=== PATIENT | male | born 1980 ===

== ENCOUNTER 2019-11-23 08:53 | Emergency (ER) | payer OTHER ==
--- NOTE | 2019-11-23 09:12 | ERPHSYRPT ---
- History of Present Illness Time Seen by Provider: 11/23/19 09:12 Source: patient Exam Limitations: no limitations Physician History: 39 y/o right handed male presents with injury to right thumb. 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 tetanus not utd. pt can take keflex just not penicillins. Occurred: just prior to arrival Method of Injury: direct blow (car door) Quality: constant, aching, throbbing Severity of Pain-Max: moderate Severity of Pain-Current: moderate Extremities Pain Location: thumb: right Modifying Factors: Improves With: movement Associated Symptoms: none Allergies/Adverse Reactions: Penicillins Allergy (Verified 11/23/19 08:58) Home Medications: Naproxen 500 mg PO Q12H PRN PRN 11/23/19 [History] - Review of Systems Constitutional: No Symptoms Eyes: No Symptoms Ears, Nose, & Throat: No Symptoms Respiratory: No Symptoms Cardiac: No Symptoms Abdominal/Gastrointestinal: No Symptoms Genitourinary Symptoms: No Symptoms Musculoskeletal: Injury (right thumb) Neurological: Other (abrasion left thumb) Psychological: No Symptoms Endocrine: No Symptoms Hematologic/Lymphatic: No Symptoms Immunological/Allergic: No Symptoms All Other Systems: Reviewed and Negative - Past Medical History Neurological History: No Pertinent History ENT History: No Pertinent History Cardiac History: No Pertinent History Respiratory History: No Pertinent History Endocrine Medical History: No Pertinent History Musculoskeletal History: No Pertinent History GI Medical History: No Pertinent History History: No Pertinent History Psycho-Social History: No Pertinent History Male Reproductive Disorders: No Pertinent History - Past Surgical History Neuro Surgical History: No Pertinent History Cardiac: No Pertinent History Respiratory: No Pertinent History Gastrointestinal: No Pertinent History Genitourinary: No Pertinent History Musculoskeletal: No Pertinent History Male Surgical History: No Pertinent History - Nursing Vital Signs Nursing Vital Signs: Initial Vital Signs Temperature 97.9 F 11/23/19 09:01 Pulse Rate 78 11/23/19 09:01 Respiratory Rate 16 11/23/19 09:01 Blood Pressure 127/83 11/23/19 09:01 O2 Sat by Pulse Oximetry 100 11/23/19 09:01 Pain Scale Pain Intensity 6 - Physical Exam General Appearance: no apparent distress, alert, anxiety Eyes, Ears, Nose, Throat Exam: normal ENT inspection, moist mucous membranes Neck Exam: normal inspection, non-tender, supple, full range of motion Cardiovascular/Respiratory Exam: chest non-tender Abdominal Exam: non-tender Back Exam: normal inspection Shoulder Exam: normal inspection, non-tender, no evidence of injury, normal ROM Elbow/Forearm Exam: normal inspection, non-tender, no evidence of injury, normal ROM Wrist Exam: normal inspection, non-tender, no evidence of injury, normal ROM Hand Exam: normal ROM, abrasions (thumb), bone tenderness, soft tissue tenderness, swelling (left thumb) Neuro/Tendon Exam: normal sensation, normal motor functions, normal tendon functions Mental Status Exam: alert, oriented x 3, cooperative Skin Exam: other (see above) SpO2 Interpretation: normal O2 Delivery: Room Air - Course Nursing assessment & vital signs reviewed: Yes Ordered Tests: Active Orders 24 hr Category Date Time Status Splint STAT Care 11/23/19 09:59 Ordered HAND (MINIMUM 3 VIEWS) Stat Exams 11/23/19 09:15 Completed - Progress Progress: unchanged Progress Note: 11/23/19 10:09 xray right hand-tiny nondisplaced cortical shaft fx distal phalanx of thumb Counseled pt/family regarding: diagnosis, need for follow-up, rad results - Departure Departure Disposition: Home Clinical Impression: Thumb fracture Condition: Stable Critical Care Time: No Referrals: DOCTOR,NO FAMILY [Primary Care Provider] - Additional Instructions: wear splint for comfort. keep abrasion site clean daily and may apply antibiotic ointment to site daily. ice pack 3 times daily for 3 days. add naproxen for pain. Prescriptions: Hydrocodone/APAP 5/325 [[place] 5/325 mg] 1 each PO Q12H PRN PRN #6 tablet MDD 2 PRN Reason: Pain Cephalexin Mh 500 mg [Keflex 500 mg] 500 mg PO TID #15 capsule
[2019-11-23 09:17] VITALS: BP 127/83; PULSE 78; O2SAT 100
--- NOTE | 2019-11-23 09:41 | XRAY ---
Indication: Distal thumb crush injury. Comparison: None 3 views of the right hand demonstrates tiny nondisplaced cortical shaft fracture distal phalanx of the thumb. Elsewhere tiny ulnar styloid well-circumscribed ossification either developmental versus old injury. No other bony, articular, or soft tissue abnormalities.
[2019-11-23] MEDS ORDERED: BACIGUENT PACKET TP ONE (09:57)
[2019-11-23] MEDS ORDERED: Adacel Vial IM ONE ×2 (10:16→10:18)
[2019-11-23] MEDS ORDERED: BACIGUENT PACKET ONE (10:18)
== END 2019-11-23 10:33 | disposition home or self-care (01) ==
LOC: ED 08:53
DX: S62.502A Fracture of unspecified phalanx of left thumb, initial encounter for closed fracture (principal); V48.4XXA Person boarding or alighting a car injured in noncollision transport accident, initial encounter
CPT/HCPCS: 73130; 90471; 90715; 99284; A9270-GY

== ENCOUNTER 2024-02-20 10:12 | Emergency (ER) | payer OTHER ==
[2024-02-20 10:40] VITALS: TEMP 97.2; O2SAT 94
[2024-02-20 10:48] VITALS: PULSE 71
[2024-02-20] MEDS: Adacel Vial IM ONE (10:48)
--- NOTE | 2024-02-20 11:08 | ERPHSYRPT ---
- History of Present Illness Time Seen by Provider: 02/20/24 10:15 Source: patient Exam Limitations: no limitations Patient Subjective Stated Complaint: "I think I have an infected hair, I tried to pop it last night but it's bigger now". Triage Nursing Assessment: Pt presents to ER with complaints of right testicular abscess / possible infected hair. Pt noticed area yesterday and attempted to "pop" it while at home. Pt does have small red area to right side of scrotum. Pt rates pain 8/10 scale. Pt is alert and oriented x 3. Respirations are easy. Pt is able to ambulate without difficulty. Pt is afebrile. Has no further complaints at this time. Physician History: Patient is here with right scrotal pain. Patient has a ingrown hair follicle. Describes it as tender, minimally drainage. Patient did try to drain it yesterday on his home. He was unable to. 8 out of 10 pain. No actual pain inside his testicle. He is up-to-date on his tetanus shot. No systemic signs of illness. No fever, chills, nausea, vomiting. Patient has no fever, tachycardia here. Allergies/Adverse Reactions: Penicillins Allergy (Verified 02/20/24 10:42) Hx Tetanus, Diphtheria Vaccination/Date Given: No Hx Influenza Vaccination/Date Given: No Hx Pneumococcal Vaccination/Date Given: No Immunizations Up to Date: No Travel Risk - International Travel Have you traveled outside of the country in past 3 weeks: No - Emerging Infectious Disease Are you exhibiting symptoms associated with any current EIDs: No - Past Medical History Pertinent Past Medical History: Yes Neurological History: No Pertinent History ENT History: No Pertinent History Cardiac History: Hypertension Respiratory History: No Pertinent History Endocrine Medical History: No Pertinent History Musculoskeletal History: No Pertinent History GI Medical History: No Pertinent History History: No Pertinent History Psycho-Social History: No Pertinent History Male Reproductive Disorders: No Pertinent History - Past Surgical History Past Surgical History: Yes Neuro Surgical History: No Pertinent History Cardiac: No Pertinent History Respiratory: No Pertinent History Gastrointestinal: No Pertinent History Genitourinary: No Pertinent History Musculoskeletal: Orthopedic Surgery Male Surgical History: Vasectomy Other Surgical History: bones spurs on right arm - Social History Smoking Status: Never smoker Exposure to second hand smoke: No Drug Use: marijuana Patient Lives Alone: No - Nursing Vital Signs Nursing Vital Signs: Initial Vital Signs Temperature 97.2 F 02/20/24 10:28 Pulse Rate 81 02/20/24 10:28 Respiratory Rate 18 02/20/24 10:28 Blood Pressure 136/86 02/20/24 10:28 O2 Sat by Pulse Oximetry 94 L 02/20/24 10:28 Pain Scale Pain Intensity 6 - Physical Exam SpO2 Interpretation: normal SpO2: 94 Comments: 02/20/24 11:07 Review of Systems Constitutional: Negative for fever. HENT: Negative for congestion. Respiratory: Negative for shortness of breath. Cardiovascular: Negative for chest pain. Gastrointestinal: Negative for abdominal pain. Genitourinary: Negative for dysuria. Musculoskeletal: Negative for back pain. Skin: Negative for rash. Neurological: Negative for headaches. Psychiatric/Behavioral: Negative for behavioral problems. All other systems reviewed and are negative. Physical Exam Vitals signs and nursing note reviewed. Constitutional: Appearance: Patient is well-developed. HENT: Head: Normocephalic and atraumatic. Eyes: Conjunctiva/sclera: Conjunctivae normal. Neck: Musculoskeletal: Normal range of motion. Trachea: No tracheal deviation. Cardiovascular: Rate and Rhythm: Normal rate. Pulmonary: Effort: Pulmonary effort is normal. No respiratory distress. Abdominal: Palpations: Abdomen is soft. Musculoskeletal: General: No deformity. Skin: General: Skin is warm and dry. Neurological/ Psychiatric: Mental Status: Mental status, behavior, interaction with environment is appropriate for patient's age and condition exam chaperoned by nurse at bedside, Adele: Patient has testicles in normal lie, no testicular tenderness, penis is c ircumcised, no discharge, tenderness. On patient's right outer scrotum. There appears to be a 1 cm x 0.5 cm area of draining abscess. It is minimally tender. I was able to expel some minimal purulent discharge. - Course Nursing assessment & vital signs reviewed: Yes Ordered Tests: Active Orders 24 hr Category Date Time Status POCT Glucose Check STAT Care 02/20/24 11:32 Active CULTURE,WOUND Stat Lab 02/20/24 10:39 Received GLUCOSE,RANDOM Stat Lab 02/20/24 10:45 Received POCT GLUCOSE Stat Lab 02/20/24 11:32 Received Medication Summary Discontinued Medications Generic Name Dose Route Start Last Admin Trade Name Freq PRN Reason Stop Dose Admin Diphtheria/Tetanus/Acell Pertussis 0.5 ml 02/20/24 10:36 02/20/24 10:48 Tdap --Diph,Pertuss(Acell),Tet Vac/Pf 0.5 Ml Vial IM 02/20/24 10:37 Not Given .ONCE ONE - Progress Progress: improved Progress Note: 02/20/24 11:10 Patient is here with draining small skin abscess on the exterior right scrotum. On palpation I do not feel any deeper abscess, extension. It is contained. Wound culture sent. We did obtain a [id number] glucose to make sure this was not a first-time diabetic presentation. Patient is up-to-date state on tetanus. He has a penicillin allergy. Will use doxycycline for the skin infection going home. Glucose was 94, no signs of new onset diabetes. Strict return precautions given. Return here for new or changing symptoms. Counseled pt/family regarding: lab results, diagnosis, need for follow-up - Departure Departure Disposition: Home Clinical Impression: Abscess of skin, Ingrown hair Condition: Stable Critical Care Time: No Referrals: DOCTOR,NO FAMILY [Primary Care Provider] - Follow up/PCP as directed Instructions: Wound Infection Additional Instructions: You will need your wound rechecked in 2 to 3 days with your primary care doctor. Return here sooner for any new or changing symptoms. Prescriptions: Doxycycline Hyclate 100 mg [Vibramycin 100 MG] 100 mg PO BID #14 tab
[2024-02-20 11:15] VITALS: BP 146/85; RESP 18
== END 2024-02-20 11:36 | disposition home or self-care (01) ==
LOC: ED 10:12
DX: N49.2 Inflammatory disorders of scrotum (principal); L73.1 Pseudofolliculitis barbae
CPT/HCPCS: 36415; 82947; 87070; 99283